=== PATIENT | female | born 1950 | race Caucasian/White ===

== ENCOUNTER 2021-01-29 14:11 | Outpatient (CLI) | payer MEDICARE, BC, SELFPAY ==
--- NOTE | 2021-01-29 14:19 | XR_ITS ---
WS: [id number] Bone mineral density performed on a [employer], 01/29/2021 Clinical data: ASYMPTOMATIC MENOPAUSE Findings: The first 4 lumbar vertebral bodies demonstrated the bone mineral density of 1.326 g/cm2 for a young adult T score of 1.2. Measurement of the right hip reveals the bone mineral density of 0.826 g/sq cm for young adult T scor e of -1.4. XR/XR DEXA axial skeleton* [id number] Impression: 1. Normal bone mineral density of the lumbar spine. 2. Osteopenia of the right hip.
== END 2021-01-29 14:12 | disposition home or self-care (01) ==
PROVIDERS: Visit Provider Family Medicine
DX: Z78.0 Asymptomatic menopausal state (principal); M85.88 Other specified disorders of bone density and structure, other site
CPT/HCPCS: 77080

== ENCOUNTER 2021-02-17 08:12 | Outpatient (CLI) | payer MEDICARE, BC, SELFPAY ==
--- NOTE | 2021-02-17 08:23 | MM_ITS ---
WS: [id number] SCREENING DIGITAL MAMMOGRAM WITH CAD HISTORY: SCREENING COMPARISON: None available. Bilateral CC and MLO views submitted. Computer aided detection analyzed. Breast composition: There are scattered areas of fibroglandular density. Coarse calcifications in the upper outer quadrant of the LEFT breast are likely related to fibroadeno mas. There is a cluster of calcifications in the medial posterior LEFT breast which may be along the inframammary fold. This could be related to skin calcifications but needs to be further evaluated. Th ere is an additional small cluster of calcifications in the RIGHT breast which appear benign. MM/[place] [id number] IMPRESSION: BI-RADS: 0-Incomplete: Need additional imaging evaluation FOLLOW UP: Need Additional Imaging LEFT magnification views BREAST: Magnification views of suspicious calcificatio n CC and MLO. True ML.
== END 2021-02-17 08:13 | disposition home or self-care (01) ==
LOC: RADSHAW 08:19
PROVIDERS: PCP Family Medicine; Visit Provider Family Medicine
DX: Z12.31 Encounter for screening mammogram for malignant neoplasm of breast (principal)
CPT/HCPCS: 77067

== ENCOUNTER 2021-02-26 11:00 | Outpatient (CLI) | payer MEDICARE, BC, SELFPAY ==
--- NOTE | 2021-02-26 11:19 | MM_ITS ---
WS: [id number] ADDITIONAL VIEWS LEFT MAMMOGRAM HISTORY: LT BREAST CALCIFICATIONS COMPARISON: 02/17/2021 Magnification views LEFT breast in CC, MLO projections and true ML submitted. Multiple views are obtained of the LEFT breast. We are unable to reproduce the calcifications in the medial posterior LEFT breast. I favor these are probably skin calcifications in the inframammary fold that were displaced during positioning. There are benign calcifications within a degenerating fibroi d in the upper outer quadrant. MM/[id number] IMPRESSION: BI-RADS: 2-Benign FOLLOW UP: 1 Year Follow-up
== END 2021-02-26 11:01 | disposition home or self-care (01) ==
PROVIDERS: PCP Family Medicine; Visit Provider Family Medicine
DX: R92.1 Mammographic calcification found on diagnostic imaging of breast (principal)
CPT/HCPCS: 77065

== ENCOUNTER 2022-03-31 09:24 | Outpatient (CLI) | payer MEDICARE, BC, SELFPAY ==
--- NOTE | 2022-03-31 09:36 | MM_ITS ---
WS: [id number] BILATERAL SCREENING DIGITAL TOMOSYNTHESIS MAMMOGRAM WITH CAD HISTORY: SCREENING COMPARISON: 02/26/2021 and 02/17/2021 Bilateral CC and MLO views with tomosynthesis and synthetic mammography submitted. Computer aided det ection analyzed. Breast composition: There are scattered areas of fibroglandular density. No suspicious masses, microc alcifications or architectural distortion. Benign calcifications are stable in each breast. MM/[place] [id number] IMPRESSION: BI-RADS: 2-Benign FOLLOW UP: 1 Year Follow-up
== END 2022-03-31 09:25 | disposition home or self-care (01) ==
LOC: RAD 09:29
PROVIDERS: PCP Family Medicine; Visit Provider Family Medicine
DX: Z12.31 Encounter for screening mammogram for malignant neoplasm of breast (principal)
CPT/HCPCS: 77063; 77067

== ENCOUNTER → 2022-09-16 08:42 | Outpatient (BNVA) | payer MEDICARE, BC, SELFPAY | PROVIDERS: PCP Family Medicine; Visit Provider Student in an Organized Health Care Education/Training Program | DX: R22.31 Localized swelling, mass and lump, right upper limb (principal) | CPT/HCPCS: 20600; 64450; 99204; J3301; J3490 ==